=== PATIENT | male | born 1975 | race Caucasian/White ===

== ENCOUNTER → 2018-04-09 | Outpatient (CLI) | payer BC ==
[~2018-04-09] MED LIST: NO HOME MEDICATIONS
== END ==
LOC: COL.RAD 12:32
DX: R09.89 Other specified symptoms and signs involving the circulatory and respiratory systems (principal)

== ENCOUNTER → 2019-03-15 | Outpatient (CLI) | payer BC | LOC: COL.RAD 03-14 13:00 | DX: J44.9 Chronic obstructive pulmonary disease, unspecified (principal) ==

== ENCOUNTER → 2020-03-21 | Outpatient (CLI) | payer BC | LOC: COL.RAD 08:11 | DX: K21.0 Gastro-esophageal reflux disease with esophagitis (principal) ==